=== PATIENT | female | born 1975 | race Caucasian/White ===

== ENCOUNTER 2016-10-04 20:00 | Emergency (ER) | payer MEDICAID ==
[~2016-10-04] VITALS: Ht 170.2 cm; Wt 140.6 kg
[~2016-10-04 20:00] MED LIST: ACET-1600 PO; BP MED; CARI350T14 PO; CITA20TA5 PO; DEPRESSION MED; DICL50TA2 PO; DICL50TA4 PO; DULO20CA45 PO; DULO30CA2 PO; FERR325T20 PO; FURO20TA3 PO; GABA-826 PO; GABA300C10 PO; HYDR-3138 PO; IBUP800T PO; LEVO125T5 PO; LEVO25TA4 PO; LEVO300T4 PO; LISI-167 PO; METH500T7 PO; MONT10TA9 PO; MULT-6 PO; NAPR550T30 PO; NORE1TAB34 PO; OMEP-110 PO; POLY17PO5 PO; QUET25TA5 PO; SULF1TAB24 PO; TIZA2TAB PO; TRAZ150T68 PO; VITA1TAB42 PO; ZIPR40CA2 PO; [UNRECOGNIZED DRUG - CODE] PO
[2016-10-04 20:05] VITALS: BP 144/87
[2016-10-04] MEDS ORDERED: KETOROLAC 30 MG/1 ML IM ONE (20:30)
[2016-10-04] MEDS ORDERED: KETOROLAC 30 MG/1 ML ONE (20:40)
== END 2016-10-04 21:28 | disposition home or self-care (01) ==
LOC: ED 21:00
DX: M77.9 Enthesopathy, unspecified (principal); I10 Essential (primary) hypertension; E11.9 Type 2 diabetes mellitus without complications
CPT/HCPCS: 29125; 73080; 73110; 96372; 99284; J1885

== ENCOUNTER 2017-06-11 17:18 | Emergency (ER) | payer MEDICAID ==
[~2017-06-11] VITALS: Ht 170.2 cm; Wt 139.1 kg
[~2017-06-11 17:18] MED LIST changes: +FERR325T18 PO; -FERR325T20 PO; -HYDR-3138 PO; +HYDR-3237 PO; +IBUP-1223 PO; -IBUP800T PO; +NAPR-850 PO; -NAPR550T30 PO; +TRAZ150T62 PO; -TRAZ150T68 PO
[2017-06-11] MEDS ORDERED: CLINDAMYCIN PMX 600MG/50ML 50 ML ONE (18:26)
[2017-06-11] MEDS ORDERED: CLINDAMYCIN PMX 600MG/50ML 50 ML IV ONE (18:30)
[2017-06-11] MEDS ORDERED: SODIUM CHLORIDE FLUSH 10ML SYR IVF ONE (18:30)
[2017-06-11 19:32] VITALS: BP 143/78
== END 2017-06-11 19:34 | disposition home or self-care (01) ==
LOC: ED 19:05
DX: K02.9 Dental caries, unspecified (principal); E06.3 Autoimmune thyroiditis; J45.909 Unspecified asthma, uncomplicated; F31.9 Bipolar disorder, unspecified; I10 Essential (primary) hypertension; Z88.0 Allergy status to penicillin
CPT/HCPCS: 96365; 96366

== ENCOUNTER 2017-09-26 18:44 | Emergency (ER) | payer MEDICAID ==
[~2017-09-26] VITALS: Ht 170.2 cm; Wt 141.5 kg
[~2017-09-26 18:44] MED LIST changes: -CITA20TA5 PO; +CITA20TA6 PO
[2017-09-26 18:49] VITALS: BP 174/102
[2017-09-26] MEDS ORDERED: HYDROcodone/APAP 5/325 TABLET ONE (19:40)
[2017-09-26] MEDS ORDERED: HYDROcodone/APAP 5/325 TABLET PO ONE (20:00)
== END 2017-09-26 19:56 ==
LOC: ED 19:30
DX: K02.9 Dental caries, unspecified (principal); K04.7 Periapical abscess without sinus; K08.89 Other specified disorders of teeth and supporting structures
CPT/HCPCS: 99283

== ENCOUNTER 2017-11-13 18:32 | Emergency (ER) | payer MEDICAID ==
[~2017-11-13] VITALS: Ht 170.2 cm; Wt 141.5 kg
[2017-11-13] MEDS ORDERED: HYDROcodone/APAP 5/325 TABLET PO ONE (19:00)
[2017-11-13] MEDS ORDERED: HYDROcodone/APAP 5/325 TABLET ONE (19:20)
[2017-11-13 19:38] VITALS: BP 139/85
== END 2017-11-13 19:40 | disposition home or self-care (01) ==
LOC: ED 19:15
DX: K02.9 Dental caries, unspecified (principal); I10 Essential (primary) hypertension; J45.909 Unspecified asthma, uncomplicated
CPT/HCPCS: 99283

== ENCOUNTER 2018-01-28 14:19 | Emergency (ER) | payer MEDICAID ==
[~2018-01-28] VITALS: Ht 170.2 cm; Wt 136.3 kg
[2018-01-28] MEDS ORDERED: PANT20TA3 PO (15:12)
[2018-01-28] MEDS ORDERED: ONDANSETRON 2MG/ML, 2ML IVPush ONE (15:30)
[2018-01-28] MEDS ORDERED: SODIUM CHLORIDE 0.9% 1,000ML IVBOLUS ONE (15:30)
[2018-01-28] MEDS ORDERED: SODIUM CHLORIDE FLUSH 10ML SYR IVF ONE (15:30)
[2018-01-28] MEDS ORDERED: MAALOX/HYOSCYAMINE/LIDOCAINE 45 ML BTL PO ONE (15:30)
[2018-01-28] MEDS ORDERED: MAALOX/HYOSCYAMINE/LIDOCAINE 45 ML BTL ONE (15:45)
[2018-01-28] MEDS ORDERED: ONDANSETRON ODT 4 MG ONE (15:45)
[2018-01-28] MEDS ORDERED: ONDANSETRON 2MG/ML, 2ML ONE (15:46)
[2018-01-28 15:47] LABS: BASOPHILS # (AUTO) 0.11 x10^3/uL (0-0.1); BASOPHILS % (AUTO) 1 % (0-1); EOSINOPHILS # (AUTO) 0.22 x10^3/uL (0-0.4); EOSINOPHILS % (AUTO) 2 % (1-7); LYMPHOCYTES # (AUTO) 3.04 x10^3/uL (1-3.4); LYMPHOCYTES % (AUTO) 32 % (22-44); MD NO; MEAN CORPUSCULAR HEMOGLOBIN 29.3 pg (27.0-34.8); MEAN CORPUSCULAR HGB CONC 32.8 g/dL (32.4-35.8); MEAN CORPUSCULAR VOLUME 89.5 fL (80-100); MEAN PLATELET VOLUME 7.4 fL (7.4-10.4); MONOCYTES # (AUTO) 0.51 x10^3/uL (0.2-0.8); MONOCYTES % (AUTO) 5 % (2-9); NEUTROPHILS # (AUTO) 5.67 x10^3/uL (1.8-6.8); NEUTROPHILS % (AUTO) 59 % (42-75); PLATELET COUNT 347 x10^3/uL (130-400); RED BLOOD COUNT 5.07 x10^6/uL (3.82-5.3); RED CELL DISTRIBUTION WIDTH 13.3 % (9.6-15.2)
[2018-01-28 15:56] LABS: HCG UR SG 1.021 (1.003-1.030)
[2018-01-28 15:59] LABS: ALANINE AMINOTRANSFERASE 22 U/L (12-78); ALBUMIN 3.8 g/dL (3.4-5.0); ANION GAP 7 mmol/L (5-15); CALCIUM 8.4 mg/dL (8.5-10.1); CHLORIDE 106 mmol/L (98-107); CREATININE 0.93 mg/dL (0.55-1.02)
[2018-01-28 16:01] LABS: ALKALINE PHOSPHATASE 82 U/L (45-117); BILIRUBIN,TOTAL 0.8 mg/dL (0.2-1.0); TOTAL PROTEIN 7.8 g/dL (6.4-8.2)
[2018-01-28 16:28] VITALS: BP 127/72
[2018-01-28 16:36] LABS: MICROSCOPIC NOT IND
[2018-01-28 16:40] LABS: CULTURE INDICATED? NO
== END 2018-01-28 17:26 | disposition home or self-care (01) ==
LOC: ED 15:26
DX: R10.84 Generalized abdominal pain (principal); R10.13 Epigastric pain; R11.2 Nausea with vomiting, unspecified; J45.909 Unspecified asthma, uncomplicated
CPT/HCPCS: 36415; 80053; 81003; 81025; 83690; 85025; 96361; 96374; 99284; J2405; J7030

== ENCOUNTER 2018-09-03 12:39 | Emergency (ER) | payer MEDICAID, OTHER ==
[~2018-09-03] VITALS: Ht 170.2 cm; Wt 127.0 kg
[~2018-09-03 12:39] MED LIST changes: +PANT20TA3 PO
[2018-09-03 12:42] VITALS: BP 180/101
--- NOTE | 2018-09-03 12:49 | NUR ---
PT HERE FOR RECHECK ON ABDOMINAL ABCESS. CLEAN DRY DRESSING IN PLACE
--- NOTE | 2018-09-03 13:44 | NUR ---
Provided w/ syringes for irrigation @ home & additional bandages. Patient given discharge instructions and they have confirmed that they understand the instructions. Patient ambulatory with steady gait.
== END 2018-09-03 13:46 | disposition home or self-care (01) ==
LOC: ED 13:40
DX: L02.211 Cutaneous abscess of abdominal wall (principal); F31.9 Bipolar disorder, unspecified; I10 Essential (primary) hypertension; Z98.890 Other specified postprocedural states
CPT/HCPCS: 99282; 99283

== ENCOUNTER 2018-09-11 22:13 | Emergency (ER) | payer MEDICAID ==
[~2018-09-11] VITALS: Ht 170.2 cm; Wt 130.8 kg
[2018-09-11 22:17] VITALS: BP 139/87
--- NOTE | 2018-09-11 22:52 | NUR ---
FROM LOBBY TO ROOM AT THIS TIME
== END 2018-09-11 23:14 | disposition home or self-care (01) ==
LOC: ED 23:08
DX: L24.5 Irritant contact dermatitis due to other chemical products (principal); I10 Essential (primary) hypertension; E07.9 Disorder of thyroid, unspecified; F31.9 Bipolar disorder, unspecified; J45.909 Unspecified asthma, uncomplicated; Z98.890 Other specified postprocedural states; Z90.89 Acquired absence of other organs
CPT/HCPCS: 99283

== ENCOUNTER 2018-10-11 20:42 | Emergency (ER) | payer MEDICAID ==
[~2018-10-11] VITALS: Ht 170.2 cm; Wt 129.0 kg
[2018-10-11 20:45] VITALS: BP 137/84
== END 2018-10-11 22:20 | disposition home or self-care (01) ==
LOC: ED 22:05
DX: S53.402A Unspecified sprain of left elbow, initial encounter (principal); S63.502A Unspecified sprain of left wrist, initial encounter; F31.9 Bipolar disorder, unspecified; I10 Essential (primary) hypertension; E07.9 Disorder of thyroid, unspecified; X50.0XXA Overexertion from strenuous movement or load, initial encounter; X50.9XXA Other and unspecified overexertion or strenuous movements or postures, initial encounter; Y93.89 Activity, other specified; Y92.89 Other specified places as the place of occurrence of the external cause; Y99.8 Other external cause status
CPT/HCPCS: 93005; 99283